=== PATIENT | female | born 1990 | race Caucasian/White ===

== ENCOUNTER 2018-02-04 21:29 | Inpatient (IN) | payer BC, MEDICARE ==
[~2018-02-04] VITALS: Ht 149.9 cm; Wt 78.5 kg
[2018-02-04] MEDS ORDERED: HYDR-308 PO (22:02)
[2018-02-04] MEDS ORDERED: ALPR-341 PO (22:04)
[2018-02-04] MEDS ORDERED: PROZ10 PO (22:04)
[2018-02-04 22:57] LABS: APPEARANCE,URINE CLOUDY (CLEAR); BILIRUBIN,URINE NEGATIVE (NEGATIVE); GLUCOSE, URINE (UA) NEGATIVE (NEGATIVE); KETONES,URINE NEGATIVE (NEGATIVE); LEUKOCYTE ESTERASE ,URINE NEGATIVE (NEGATIVE); NITRATE,URINE NEGATIVE (NEGATIVE); OCCULT BLOOD,URINE NEGATIVE (NEGATIVE); PH,URINE 5.5 (5.0-8.0); PROTEIN,URINE NEGATIVE (NEGATIVE); UROBILINOGEN,URINE 0.2 mg/dL (<=1.0)
[2018-02-04 22:58] LABS: BASOPHILS % (AUTO) 0.4 % (0.0-2.0); EOSINOPHILS % (AUTO) 2.8 % (1.0-6.0); HEMATOCRIT 36.9 % (36-46); HEMOGLOBIN 12.7 g/dL (12.0-16.0); LYMPHOCYTES # (AUTO) 3.4 K/uL (1.0-4.8); LYMPHOCYTES % (AUTO) 39.5 % (22.0-44.0); MEAN CORPUSCULAR HEMOGLOBIN 29.1 pg (26.0-34.0); MEAN CORPUSCULAR HGB CONC 34.4 G/dL (31.0-37.0); MEAN CORPUSCULAR VOLUME 84 fL (80-100); MONOCYTES # (AUTO) 0.5 K/uL (0.1-1.0); MONOCYTES % (AUTO) 6.3 % (2.0-9.0); NEUTROPHILS # (AUTO) 4.4 K/uL (1.8-7.7); PLATELET COUNT (AUTO) 270 K/uL (150-450); RED BLOOD CELL COUNT(AUTO) 4.36 MIL/uL (4.00-5.20); RED CELL DISTRIBUTION WIDTH 12.7 % (11.5-14.5)
[2018-02-04] MEDS ORDERED: ZOLPIDEM TARTRATE 10 MG TABLET PO PRN (23:00)
[2018-02-04] MEDS ORDERED: HALOPERIDOL 5 MG TABLET PO PRN (23:00)
[2018-02-04 23:02] LABS: AMPHET/METH SCREEN,URINE NEGATIVE (NEGATIVE); BARBITURATE SCREEN, URINE NEGATIVE (NEGATIVE); BENZODIAZEPINES SCREEN,URINE POSITIVE (NEGATIVE); CANNABINOID SCREEN,URINE NEGATIVE (NEGATIVE); COCAINE SCREEN,URINE NEGATIVE (NEGATIVE); METHADONE SCREEN, URINE NEGATIVE (NEGATIVE); OPIATE SCREEN,URINE POSITIVE (NEGATIVE); PHENCYCLIDINE SCREEN,URINE NEGATIVE (NEGATIVE)
[2018-02-04 23:03] LABS: ANION GAP 9 mmol/L (8-16); CALCIUM, TOTAL 8.5 mg/dL (8.8-10.5); CARBON DIOXIDE 25 mmol/L (22-29); CHLORIDE 107 mmol/L (98-107); CREATININE 0.71 mg/dL (0.60-1.30); GLOMERULAR FILTR. RATE CALC > 60 mL/min (>60); GLUCOSE,RANDOM 158 mg/dL (70-110); POTASSIUM 3.7 mmol/L (3.5-5.1); SODIUM SERUM 141 mmol/L (136-145); UREA NITROGEN, BLOOD 8 mg/dL (7-18)
[2018-02-04 23:08] LABS: ALANINE AMINOTRANSFERASE 45 U/L (12-78); ALBUMIN 3.1 g/dL (3.4-5.0); ALKALINE PHOSPHATASE 98 U/L (46-116); ASPARTATE AMINOTRANSFERASE 26 U/L (15-37); BILIRUBIN,TOTAL 0.2 mg/dL (0.1-1.0); TOTAL PROTEIN, SERUM 6.7 g/dL (6.4-8.2)
[2018-02-04 23:13] LABS: SALICYLATE 0.8 mg/dL (2.8-20.0)
[2018-02-04 23:14] LABS: BACTERIA,URINE Moderate /HPF (None Seen); RBC,URINE 0-2 /HPF (0-2); SQUAMOUS EPITHELIAL CELL,UR Moderate /LPF (None Seen)
[2018-02-04 23:15] LABS: MUCUS,URINE Few LPF (None Seen)
[2018-02-04 23:17] LABS: ACETAMINOPHEN 14 mcg/mL (10-30)
[2018-02-05] MEDS ORDERED: LORazepam 2 MG TABLET PO ONE (02:00)
[2018-02-05] MEDS: LORazepam 2 MG TABLET PO PRN ×2 (05:30→18:09)
[2018-02-05 13:00] VITALS: BP 113/73
[2018-02-05] MEDS: FLUoxetine HCL 20 MG CAPSULE PO SCH (14:18)
[2018-02-05] MEDS ORDERED: LOPERAMIDE HCL 2 MG CAPSULE PO PRN (14:30)
[2018-02-05] MEDS ORDERED: HYDROCODONE/ACETAMINOPHEN 7.5-325 MG/15 ML SOLUTION UDCUP PO PRN (14:30)
[2018-02-05] MEDS ORDERED: ONDANSETRON HCL 4 MG TABLET PO PRN (14:30)
[2018-02-05] MEDS ORDERED: MAG HYDROX/AL HYDROX/SIMETH ES 30 ML SUSPENSION UDCUP PO PRN (14:30)
[2018-02-05] MEDS ORDERED: ACETAMINOPHEN 325 MG TABLET PO PRN (14:30)
[2018-02-05] MEDS ORDERED: DOCUSATE SODIUM 100 MG CAPSULE PO PRN (14:30)
[2018-02-05] MEDS ORDERED: IBUPROFEN 400 MG TABLET PO PRN (14:30)
[2018-02-05] MEDS ORDERED: ALBUTEROL SULFATE HFA 90 MCG/PUFF 8 GM INHALER IH PRN (14:30)
[2018-02-05] MEDS ORDERED: MAGNESIUM HYDROXIDE SUSPENSION 30 ML UDCUP PO PRN (14:30)
[2018-02-05] MEDS ORDERED: CloNIDine HCL 0.1 MG TABLET PO PRN (14:30)
[2018-02-05] MEDS ORDERED: PETROLATUM,WHITE 71 GM JELLY TP PRN (14:30)
[2018-02-05 16:12] VITALS: BP 108/78
[2018-02-05 17:57] VITALS: BP 118/76
[2018-02-06 06:42] VITALS: BP 104/63
[2018-02-06 08:20] VITALS: BP 120/79
[2018-02-06 09:13] LABS: CHOL/HDL RATIO 4.6 (3.9-5.7); THYROID STIMULATING HORMONE 0.8 uIU/mL (0.36-3.74)
[2018-02-06] MEDS: FLUoxetine HCL 20 MG CAPSULE PO SCH (09:32)
[2018-02-06 16:08] VITALS: BP 112/62
[2018-02-06] MEDS: LORazepam 2 MG TABLET PO PRN (16:58)
[2018-02-07] VITALS: BP 120/77
[2018-02-07] MEDS: LORazepam 2 MG TABLET PO PRN (00:04)
[2018-02-07 08:40] VITALS: BP 114/74
[2018-02-07] MEDS: FLUoxetine HCL 20 MG CAPSULE PO SCH (08:59)
[2018-02-07] MEDS ORDERED: FLUO-191 PO ×2 (09:59→11:00)
== END 2018-02-07 12:50 | disposition home or self-care (01) | DRG 885 ==
LOC: EMS 21:30 → B2S 02-05 11:00
DX: F33.2 Major depressive disorder, recurrent severe without psychotic features (principal); F41.9 Anxiety disorder, unspecified; G89.29 Other chronic pain; M54.9 Dorsalgia, unspecified; T42.4X2A Poisoning by benzodiazepines, intentional self-harm, initial encounter; Z88.8 Allergy status to other drugs, medicaments and biological substances; Z91.02 Food additives allergy status; Z79.899 Other long term (current) drug therapy; Z91.5 Personal history of self-harm; Y92.89 Other specified places as the place of occurrence of the external cause
CPT/HCPCS: 83036; 84443; 87086; 99285; G0480; G0481